=== PATIENT | male | born 1965 | race Caucasian/White ===

== ENCOUNTER 2017-02-27 09:52 | Day surgery (SDC) | payer MEDICARE, MEDICAID ==
[~2017-02-27] VITALS: Ht 172.7 cm; Wt 69.9 kg
[~2017-02-27 09:52] MED LIST: ATIVAN 0.50.5 MG/TAB PO; ATIVAN 1MG T1 MG/TAB PO; B-1100 MG PO; CALCIUM PO; CEFTIN 250250 MG/TAB PO; CEPHALEXIN250 M1 PO; DEPAKOTE ER 50500 MG PO; DILANTIN 100MG100 MG PO; FOLIC ACID 11 MG/TA1 PO; FOLIC ACID0.4 MG PO; FOSAMAX 70MG TA70 MG PO; INFANTS AQU400 IU/ML PO; K-DUR 2020 MEQ PO; K-TAB20 PO; KLOR-CON M2020 MEQ PO; LOPRESSOR 550 MG/TAB PO; MULTI VITAMINS1 TAB PO; NEXIUM PO; NO HOME MEDICATIONS; OSCAL 500 TAB500 MG PO; PRINZIDE 25 MG-1 TAB PO; PROTONIX 40MG T40 MG PO; SEROQUEL 1100 MG/TAB PO; SEROQUEL 200MG200 MG PO; SEROQUEL300 MG PO; SLEEP MED; THIAMINE 1100 MG/TAB PO; VIIBRYD10 MG; VIIBRYD40 MG PO; ZOFRAN 4MG T4 MG/TAB PO
[2017-02-27 10:11] VITALS: BP 117/89; PULSE 80; TEMP 98
[2017-02-27] MEDS ORDERED: LOPRESSOR 550 MG/TAB PO (10:11)
[2017-02-27 12:03] VITALS: BP 119/92; PULSE 93
[2017-02-27 12:18] VITALS: BP 119/62; PULSE 81
[2017-02-27 13:55] VITALS: BP 124/92; PULSE 86
== END 2017-02-27 12:40 | disposition home or self-care (01) ==
LOC: SDCO 09:52
DX: K22.2 Esophageal obstruction (principal); K21.0 Gastro-esophageal reflux disease with esophagitis; I10 Essential (primary) hypertension; F41.0 Panic disorder [episodic paroxysmal anxiety]; F17.210 Nicotine dependence, cigarettes, uncomplicated; E87.6 Hypokalemia; E87.1 Hypo-osmolality and hyponatremia; Z87.11 Personal history of peptic ulcer disease; Z86.010 Personal history of colon polyps; F31.9 Bipolar disorder, unspecified; F10.239 Alcohol dependence with withdrawal, unspecified; Y90.9 Presence of alcohol in blood, level not specified
CPT/HCPCS: C1769; J2250; J2704